=== PATIENT | male | born 1995 | race Caucasian/White ===

== ENCOUNTER 2020-04-14 16:32 | Emergency (ER) | payer SELFPAY ==
[2020-04-14 17:30] VITALS: BP 159/82; PULSE 105; TEMP 98.9; BMI 34.2
== END 2020-04-14 18:02 | disposition home or self-care (01) ==
LOC: JER 16:32
DX: R50.9 Fever, unspecified (principal); J02.9 Acute pharyngitis, unspecified; R05 Cough; Z20.822 Contact with and (suspected) exposure to COVID-19
CPT/HCPCS: 99283-25; C9803; U0003